=== PATIENT | female | born 1985 | race Two or more races ===

== ENCOUNTER 2019-09-16 17:49 | Emergency (ER) | payer OTHER ==
[~2019-09-16] VITALS: Ht 165.1 cm; Wt 80.7 kg
--- NOTE | 2019-09-16 17:59 | NUR ---
patient arrived at [facility], from home, had an allergic reaction to vitamin B3 30mins TECHNICAL INTERN 0.5mg epi and benadryl 50mg given [id number] by ems
[2019-09-16] MEDS ORDERED: diphenhydrAMINE HCL 50 MG/ML VIAL IV ONE (18:00)
[2019-09-16] MEDS ORDERED: ALBUTEROL FS 2.5 MG/3 ML VIAL.NEB ONE (18:00)
[2019-09-16] MEDS ORDERED: ALBUTEROL FS 2.5 MG/3 ML VIAL.NEB NEB ONE (18:00)
[2019-09-16] MEDS ORDERED: methylPREDNISolone SOD SUCC 125 MG/2ML VIAL IV ONE (18:00)
[2019-09-16] MEDS ORDERED: IV NS 0.9% 1,000 ML IV ONE (18:00)
[2019-09-16] MEDS ORDERED: FAMOTIDINE/PF INJ 20 MG/2 ML VIAL IV ONE ×2 (18:00→18:20)
[2019-09-16] MEDS ORDERED: diphenhydrAMINE HCL 50 MG/ML VIAL ONE (18:19)
[2019-09-16] MEDS ORDERED: methylPREDNISolone SOD SUCC 125 MG/2ML VIAL ONE (18:20)
[2019-09-16 18:21] LABS: BASOPHILS % (AUTO) 0.4 % (0.0-2.0); EOSINOPHILS % (AUTO) 0.5 % (0.0-6.0); HEMATOCRIT 36 % (33-45); HEMOGLOBIN 11.9 g/dL (11.5-14.8); LYMPHOCYTES # (AUTO) 1.2 /CMM (0.8-4.8); LYMPHOCYTES % (AUTO) 17.8 % (20.0-44.0); MEAN CORPUSCULAR HGB CONC 33 g/dl (31.0-36.0); MEAN CORPUSCULAR VOLUME 86 fL (82-100); MONOCYTES # (AUTO) 0.1 /CMM (0.1-1.30); MONOCYTES % (AUTO) 1.3 % (2.0-12.0); NEUTROPHILS # (AUTO) 5.3 /CMM (1.8-8.9); PLATELET COUNT (AUTO) 153 /CMM (150-450); RED BLOOD CELL COUNT(AUTO) 4.21 MIL/uL (4.0-5.2); WHITE BLOOD COUNT (AUTO) 6.7 K/uL (4.3-11.0)
[2019-09-16 18:37] LABS: ALBUMIN 3.8 g/dL (3.4-5.0); BILIRUBIN,DIRECT 0.1 mg/dL (0.0-0.2); BILIRUBIN,TOTAL 0.8 mg/dL (0.2-1.0); CALCIUM, SERUM 8.2 mg/dL (8.5-10.1); CREATININE 1.2 mg/dL (0.6-1.3); TOTAL PROTEIN, SERUM 7.7 g/dL (6.4-8.2)
[2019-09-16 18:39] LABS: POTASSIUM 2.8 mmol/L (3.5-5.1)
[2019-09-16] MEDS ORDERED: POTASSIUM CHLORIDE 20 MEQ TAB.PRT.SR PO ONE ×2 (18:47→19:00)
--- NOTE | 2019-09-16 19:35 | NUR ---
IV removed. Catheter intact and site benign. Pressure and 4x4 applied to site. No bleeding noted.Patient discharged to home in stable condition. rX and Written and verbal after care instructions given. Patient verbalizes understanding of instruction.
[2019-09-16 19:53] VITALS: BP 147/85
== END 2019-09-16 19:35 | disposition home or self-care (01) ==
LOC: ER 17:53
DX: T45.2X5A Adverse effect of vitamins, initial encounter (principal); E03.9 Hypothyroidism, unspecified; E86.0 Dehydration; Y92.89 Other specified places as the place of occurrence of the external cause
CPT/HCPCS: 36415; 71045; 80048; 80076; 85025; 94644; 96361; 96374; 96375; 99285; J1200; J2930; J3490; J7030